=== PATIENT | male | born 1980 | race Caucasian/White ===

== ENCOUNTER 2021-05-22 17:49 | Emergency (ER) | payer OTHER ==
[2021-05-22 19:45] LABS: BASOPHIL 1.2 % (0-2); EOSINOPHIL 3.1 % (0-5); HCT 47.4 % (42.0-52.0); HGB 17.4 g/dl (13.2-18.0); MCH 33.5 pg (25.0-31.0); MCHC 36.7 g/dL (32.0-36.0); MCV 91.3 fL (78.0-100.0); MONOCYTE 5.7 % (0-12); MPV 9.5 fL (6.0-9.5); NEUTROPHIL 43.6 % (41-80); NRBC 0; PLT 267 K/uL (150-400); RBC 5.19 M/uL (4.70-6.00); RDW 12.2 % (11.5-14.0); WBC 9.3 K/uL (4.0-10.5)
[2021-05-22 20:12] LABS: ALBUMIN 4.5 g/dL (3.4-5.0); BILIRUBIN - TOTAL 0.3 mg/dL (0.2-1.0); BUN/CREAT RATIO (CALC) 16.9 RATIO; CREATININE 0.77 mg/dL (0.67-1.17); GLOBULIN (CALCULATION) 3.7 g/dL; TOTAL PROTEIN 8.2 g/dL (6.4-8.2)
[2021-05-22 22:13] LABS: CORONAVIRUS 2019 SARS-COV-2 NEGATIVE (NEGATIVE); INFLUENZA A NAA NEGATIVE (NEGATIVE)
[2021-05-22] MEDS ORDERED: ZESTRIL5 MG PO (22:34)
[2021-05-22] MEDS ORDERED: ASPIRIN EC81 MG PO (22:34)
== END 2021-05-22 23:00 | disposition home or self-care (01) ==
LOC: FER 17:49
PROVIDERS: Emergency Medicine
DX: I10 Essential (primary) hypertension (principal); R07.89 Other chest pain; R20.2 Paresthesia of skin; Z20.822 Contact with and (suspected) exposure to COVID-19
CPT/HCPCS: 36415; 70450; 71275; 72125; 80053; 84484; 85025; 85379; 93005; Q9967; U0002